=== PATIENT | male | born 1985 | race Caucasian/White ===

== ENCOUNTER 2017-09-11 18:54 | Inpatient (IN) | payer MEDICAID, OTHER ==
[~2017-09-11] VITALS: Ht 185.4 cm; Wt 88.2 kg
[~2017-09-11 18:54] MED LIST: DIVA500T35 PO; IBUP-2077 PO; PAIN MED PO; RISP4 PO
[2017-09-11 19:58] LABS: AMPHET/METH SCREEN,URINE NEGATIVE (NEGATIVE); BARBITURATE SCREEN, URINE NEGATIVE (NEGATIVE); BENZODIAZEPINES SCREEN,URINE NEGATIVE (NEGATIVE); CANNABINOID SCREEN,URINE NEGATIVE (NEGATIVE); COCAINE SCREEN,URINE NEGATIVE (NEGATIVE); METHADONE SCREEN, URINE NEGATIVE (NEGATIVE); OPIATE SCREEN,URINE NEGATIVE (NEGATIVE)
[2017-09-11 19:59] LABS: PHENCYCLIDINE SCREEN,URINE NEGATIVE (NEGATIVE)
[2017-09-11 20:04] LABS: BASOPHILS % (AUTO) 0.2 % (0.0-2.0); EOSINOPHILS % (AUTO) 0.9 % (1.0-6.0); LYMPHOCYTES # (AUTO) 1.8 K/uL (1.0-4.8); LYMPHOCYTES % (AUTO) 27.9 % (22.0-44.0); MEAN CORPUSCULAR HEMOGLOBIN 30.6 pg (26.0-34.0); MEAN CORPUSCULAR HGB CONC 35.5 G/dL (31.0-37.0); MEAN CORPUSCULAR VOLUME 86 fL (80-100); MONOCYTES # (AUTO) 0.3 K/uL (0.1-1.0); MONOCYTES % (AUTO) 5.1 % (2.0-9.0); NEUTROPHILS # (AUTO) 4.2 K/uL (1.8-7.7); NEUTROPHILS % (AUTO) 65.9 % (40.0-70.0); PLATELET COUNT (AUTO) 176 K/uL (150-450); RED BLOOD CELL COUNT(AUTO) 5.55 MIL/uL (4.50-5.90); RED CELL DISTRIBUTION WIDTH 13.2 % (11.5-14.5)
[2017-09-11 20:05] LABS: ANION GAP 7 mmol/L (8-16); CALCIUM, TOTAL 8.6 mg/dL (8.8-10.5); CARBON DIOXIDE 28 mmol/L (22-29); CHLORIDE 105 mmol/L (98-107); CREATININE 0.95 mg/dL (0.60-1.30); GLOMERULAR FILTR. RATE CALC > 60 mL/min (>60); GLUCOSE,RANDOM 96 mg/dL (70-110); POTASSIUM 3.7 mmol/L (3.5-5.1); SODIUM SERUM 140 mmol/L (136-145); UREA NITROGEN, BLOOD 14 mg/dL (7-18)
[2017-09-11 20:10] LABS: ALANINE AMINOTRANSFERASE 78 U/L (12-78); ALBUMIN 4.5 g/dL (3.4-5.0); ALKALINE PHOSPHATASE 71 U/L (46-116); ASPARTATE AMINOTRANSFERASE 34 U/L (15-37); BILIRUBIN,TOTAL 0.7 mg/dL (0.1-1.0); TOTAL PROTEIN, SERUM 7.9 g/dL (6.4-8.2)
[2017-09-11 20:24] LABS: VALPROIC ACID 4 mcg/mL (50-100)
[2017-09-11] MEDS ORDERED: PERTUSS(ACELL),DIPH,TET VAC/PF 0.5 ML VIAL IM ONE (21:30)
[2017-09-11] MEDS ORDERED: BACITRACIN 0.9 GM PACKET OINTMENT TP ONE (21:30)
[2017-09-11] MEDS ORDERED: ZOLPIDEM TARTRATE 10 MG TABLET PO PRN (21:45)
[2017-09-11 23:37] LABS: CHOL/HDL RATIO 3.3 (4.2-7.3); CHOLESTEROL 259 mg/dL (131-200); FREE T4 (FREE THYROXINE) 0.92 ng/dL (0.76-1.46); HDL CHOLESTEROL 78 mg/dL (40-60); LDL CHOL (CALC.) 160 mg/dL (0-130); THYROID STIMULATING HORMONE 4.29 uIU/mL (0.36-3.74); TRIGLYCERIDES 105 mg/dL (15-150)
[2017-09-12] VITALS (13 sets, daily range): BP systolic 108–128; BP diastolic 61–92
[2017-09-12] MEDS ORDERED: ACETAMINOPHEN 325 MG TABLET PO PRN ×2 (08:15→14:30)
[2017-09-12] MEDS ORDERED: IBUPROFEN 400 MG TABLET PO PRN ×2 (08:15→14:30)
[2017-09-12 08:29] LABS: CHOL/HDL RATIO 3.6 (4.2-7.3); CHOLESTEROL 214 mg/dL (131-200); FREE T4 (FREE THYROXINE) 0.85 ng/dL (0.76-1.46); HDL CHOLESTEROL 60 mg/dL (40-60); LDL CHOL (CALC.) 124 mg/dL (0-130); THYROID STIMULATING HORMONE 3.09 uIU/mL (0.36-3.74); TRIGLYCERIDES 150 mg/dL (15-150)
[2017-09-12] MEDS: LevETIRAcetam 500 MG TABLET PO SCH (16:17)
[2017-09-13 02:00] VITALS: BP 106/69
[2017-09-13 06:14] VITALS: BP 110/72
[2017-09-13 08:02] VITALS: BP 117/62
[2017-09-13 08:30] VITALS: BP 117/62
[2017-09-13] MEDS: RisperiDONE 3 MG TABLET PO SCH ×2 (08:40→16:05)
[2017-09-13] MEDS: LevETIRAcetam 500 MG TABLET PO SCH (08:40)
[2017-09-13] MEDS: DIVALPROEX SODIUM 500 MG DR TABLET PO SCH (16:05)
[2017-09-13 16:20] VITALS: BP 122/76
[2017-09-13 16:22] VITALS: BP 122/76
[2017-09-14] VITALS: BP 118/72
[2017-09-14] MEDS: DIVALPROEX SODIUM 500 MG DR TABLET PO SCH ×2 (08:21→17:00)
[2017-09-14] MEDS: RisperiDONE 3 MG TABLET PO SCH ×2 (08:22→17:00)
[2017-09-14 13:41] VITALS: BP 119/89
[2017-09-14 13:42] VITALS: BP 119/89
[2017-09-14 16:00] VITALS: BP 125/85
[2017-09-14 16:14] VITALS: BP 125/85
[2017-09-15 05:22] VITALS: BP 122/78
[2017-09-15 05:23] VITALS: BP 122/78
[2017-09-15] MEDS: DIVALPROEX SODIUM 500 MG DR TABLET PO SCH ×2 (08:38→16:00)
[2017-09-15 08:39] VITALS: BP 133/83
[2017-09-15] MEDS: RisperiDONE 3 MG TABLET PO SCH ×2 (08:39→16:00)
[2017-09-15 16:20] VITALS: BP 124/85
[2017-09-16 02:30] VITALS: BP 127/73
[2017-09-16 08:22] VITALS: BP 123/84
[2017-09-16] MEDS: HALOPERIDOL 5 MG TABLET PO PRN (08:29)
[2017-09-16] MEDS: DIVALPROEX SODIUM 500 MG DR TABLET PO SCH ×2 (08:29→16:57)
[2017-09-16] MEDS: LORazepam 2 MG TABLET PO PRN (08:29)
[2017-09-16] MEDS: RisperiDONE 3 MG TABLET PO SCH ×2 (08:29→16:57)
[2017-09-16 08:39] VITALS: BP 123/84
[2017-09-16 16:24] VITALS: BP 116/65
[2017-09-17 03:45] VITALS: BP 126/81
[2017-09-17] MEDS: RisperiDONE 3 MG TABLET PO SCH ×2 (08:10→16:30)
[2017-09-17] MEDS: DIVALPROEX SODIUM 500 MG DR TABLET PO SCH ×2 (08:10→16:30)
[2017-09-17 08:54] VITALS: BP 136/99
[2017-09-17 10:11] VITALS: BP 136/99
[2017-09-17 16:07] VITALS: BP 118/86
[2017-09-18 06:11] VITALS: BP 126/71
[2017-09-18 06:13] VITALS: BP 126/71
[2017-09-18 08:40] VITALS: BP 126/82
[2017-09-18] MEDS: RisperiDONE 3 MG TABLET PO SCH ×2 (09:00→16:26)
[2017-09-18] MEDS: DIVALPROEX SODIUM 500 MG DR TABLET PO SCH ×2 (09:00→16:26)
[2017-09-18] MEDS ORDERED: RISP3 PO (09:52)
[2017-09-18 16:41] VITALS: BP 128/89
[2017-09-19 06:10] VITALS: BP 104/56
[2017-09-19] MEDS: RisperiDONE 3 MG TABLET PO SCH ×2 (07:52→16:11)
[2017-09-19] MEDS: DIVALPROEX SODIUM 500 MG DR TABLET PO SCH ×2 (07:52→16:10)
[2017-09-19 08:34] VITALS: BP 125/92
[2017-09-19 16:05] VITALS: BP 134/84
[2017-09-20 01:00] VITALS: BP 116/73
[2017-09-20 08:27] VITALS: BP 132/85
[2017-09-20] MEDS: DIVALPROEX SODIUM 500 MG DR TABLET PO SCH ×2 (08:27→16:07)
[2017-09-20] MEDS: RisperiDONE 3 MG TABLET PO SCH ×2 (08:27→16:07)
[2017-09-20 16:29] VITALS: BP 126/84
[2017-09-21 06:39] VITALS: BP 133/89
[2017-09-21] MEDS: DIVALPROEX SODIUM 500 MG DR TABLET PO SCH ×2 (08:36→16:17)
[2017-09-21] MEDS: RisperiDONE 3 MG TABLET PO SCH ×2 (08:36→16:17)
[2017-09-21 10:33] VITALS: BP 138/87
[2017-09-21 16:04] VITALS: BP 139/86
[2017-09-22 05:49] VITALS: BP 128/73
[2017-09-22 08:06] VITALS: BP 126/84
[2017-09-22] MEDS: LORazepam 2 MG TABLET PO PRN (08:08)
[2017-09-22] MEDS: HALOPERIDOL 5 MG TABLET PO PRN (08:08)
[2017-09-22] MEDS: RisperiDONE 3 MG TABLET PO SCH ×2 (08:08→16:01)
[2017-09-22] MEDS: DIVALPROEX SODIUM 500 MG DR TABLET PO SCH ×2 (08:08→16:01)
[2017-09-22 16:22] VITALS: BP 127/80
[2017-09-23 01:41] VITALS: BP 121/68
[2017-09-23 08:12] VITALS: BP 133/72
[2017-09-23] MEDS: RisperiDONE 3 MG TABLET PO SCH ×2 (08:13→16:04)
[2017-09-23] MEDS: DIVALPROEX SODIUM 500 MG DR TABLET PO SCH ×2 (08:13→16:04)
[2017-09-23 16:11] VITALS: BP 114/73
[2017-09-24 06:00] VITALS: BP 115/79
[2017-09-24 08:24] VITALS: BP 127/79
[2017-09-24] MEDS: DIVALPROEX SODIUM 500 MG DR TABLET PO SCH ×2 (08:27→16:11)
[2017-09-24] MEDS: RisperiDONE 3 MG TABLET PO SCH ×2 (08:27→16:11)
[2017-09-24 16:05] VITALS: BP 120/73
[2017-09-25 01:40] VITALS: BP 119/85
[2017-09-25] MEDS: RisperiDONE 3 MG TABLET PO SCH ×2 (08:13→17:06)
[2017-09-25] MEDS: DIVALPROEX SODIUM 500 MG DR TABLET PO SCH ×2 (08:13→17:06)
[2017-09-25 08:32] VITALS: BP 125/83
[2017-09-25 16:12] VITALS: BP 120/85
[2017-09-26 06:35] VITALS: BP 124/72
[2017-09-26] MEDS: RisperiDONE 3 MG TABLET PO SCH ×2 (08:00→16:12)
[2017-09-26] MEDS: DIVALPROEX SODIUM 500 MG DR TABLET PO SCH ×2 (08:00→16:12)
[2017-09-26 08:32] VITALS: BP 133/83
[2017-09-26] MEDS ORDERED: RisperiDONE MICROSPHERES 50 MG/2 ML SYRINGE IM ONE (15:00)
[2017-09-26 16:15] VITALS: BP 146/97
[2017-09-27 00:42] VITALS: BP 112/66
[2017-09-27] MEDS: DIVALPROEX SODIUM 500 MG DR TABLET PO SCH ×2 (08:26→17:01)
[2017-09-27] MEDS: RisperiDONE 3 MG TABLET PO SCH ×2 (08:26→17:01)
[2017-09-27 08:38] VITALS: BP 121/86
[2017-09-27 16:04] VITALS: BP 106/69
[2017-09-28 01:14] VITALS: BP 117/67
[2017-09-28] MEDS: RisperiDONE 3 MG TABLET PO SCH ×2 (08:27→16:39)
[2017-09-28] MEDS: DIVALPROEX SODIUM 500 MG DR TABLET PO SCH ×2 (08:27→16:39)
[2017-09-28 08:33] VITALS: BP 140/60
[2017-09-28 16:30] VITALS: BP 118/77
[2017-09-29] VITALS: BP 119/64
[2017-09-29] MEDS: DIVALPROEX SODIUM 500 MG DR TABLET PO SCH (08:15)
[2017-09-29] MEDS: RisperiDONE 3 MG TABLET PO SCH (08:15)
[2017-09-29 08:18] VITALS: BP 118/83
== END 2017-09-29 10:37 | disposition home or self-care (01) | DRG 750 ==
LOC: EMS 18:55 → B2S 22:25
PROVIDERS: ADMIT Psychiatry & Neurology Psychiatry; ATTEND Psychiatry & Neurology Psychiatry
DX: F25.0 Schizoaffective disorder, bipolar type (principal); R45.851 Suicidal ideations; G40.909 Epilepsy, unspecified, not intractable, without status epilepticus; E78.5 Hyperlipidemia, unspecified; F10.129 Alcohol abuse with intoxication, unspecified; Z91.14 Patient's other noncompliance with medication regimen; S81.811A Laceration without foreign body, right lower leg, initial encounter; V49.9XXA Car occupant (driver) (passenger) injured in unspecified traffic accident, initial encounter; Y93.89 Activity, other specified; Y92.89 Other specified places as the place of occurrence of the external cause; Y99.8 Other external cause status
CPT/HCPCS: 84439; 84443; 90715; 99285; G0480; J2794